=== PATIENT | male | born 1955 | race Caucasian/White ===

== ENCOUNTER 2016-08-01 06:33 | Emergency (ER) | payer OTHER ==
[~2016-08-01] VITALS: Ht 180.3 cm; Wt 97.3 kg
[2016-08-01 06:37] VITALS: TEMP 97.9
[2016-08-01] MEDS ORDERED: NEURONTIN300 MG/CAP PO (08:38)
[2016-08-01] MEDS ORDERED: PRINIVIL40 MG PO (08:38)
[2016-08-01] MEDS ORDERED: LIPITOR 40MG TA40 MG PO (08:38)
[2016-08-01] MEDS ORDERED: GLUCOPHAGE1000 MG PO (08:38)
[2016-08-01] MEDS ORDERED: XARELTO20 MG PO (08:39)
[2016-08-01 09:00] VITALS: BP 140/81; PULSE 81
== END 2016-08-01 08:59 | disposition home or self-care (01) ==
LOC: COL.ER 06:33
DX: S01.111A Laceration without foreign body of right eyelid and periocular area, initial encounter (principal); S20.211A Contusion of right front wall of thorax, initial encounter; S60.222A Contusion of left hand, initial encounter; S80.211A Abrasion, right knee, initial encounter; W10.8XXA Fall (on) (from) other stairs and steps, initial encounter; Y92.008 Other place in unspecified non-institutional (private) residence as the place of occurrence of the external cause; Z23 Encounter for immunization